=== PATIENT | male | born 1995 | race Hispanic/Latino ===

== ENCOUNTER 2019-03-03 17:44 | Emergency (ER) | payer OTHER ==
[2019-03-03 18:52] LABS: BASO % 0.6 % (0.0-2.0); EOS # 0.1 K/uL (0.0-0.7); EOS % 0.8 % (0.0-4.0); HEMOGLOBIN 15.2 g/dL (12.0-18.0); LYMPH # 1.9 K/uL (1.0-4.3); LYMPH % 26.2 % (20.0-40.0); MEAN CELL VOLUME 84.7 fl (80.0-94.0); MEAN CORPUSCULAR HEMOGLOBIN 28.2 pg (27.0-31.0); MEAN CORPUSCULAR HGB CONC 33.3 g/dL (33.0-37.0); MEAN PLATELET VOLUME 8.7 fl (7.2-11.7); MONO # 0.4 K/uL (0.0-0.8); MONO % 5.6 % (0.0-10.0); NEUT # 4.8 K/uL (1.8-7.0); NEUT % 66.8 % (50.0-75.0); NRBC % 0.3 % (0.0-0.0); RBC 5.4 Mil/uL (4.40-5.90); RED CELL DISTRIBUTION WIDTH 13.4 % (11.5-14.5); WHITE BLOOD COUNT 7.2 K/uL (4.8-10.8)
[2019-03-03 19:02] LABS: ACETAMINOPHEN < 10.0 ug/ml (10.0-30.0); SALICYLATE < 1.0 mg/dl
[2019-03-03 19:06] LABS: ALB/GLOB RATIO 1.4 (1.0-2.1); ALBUMIN 4.3 g/dL (3.5-5.0); ALT/SGPT 42 U/L (21-72); AST/SGOT 23 U/L (17-59); BLOOD UREA NITROGEN 13 mg/dl (9-20); CALCIUM 9.3 mg/dL (8.4-10.2); GFR NON-AFRICAN AMERICAN > 60
--- NOTE | 2019-03-03 19:36 | ED PDOC ---
HPI: Psych/Substance Abuse Time Seen by Provider: 03/03/19 18:09 Chief Complaint (Nursing): Psychiatric Evaluation Chief Complaint (Provider): Psychiatric Evaluation History Per: Patient History/Exam Limitations: no limitations Onset/Duration Of Symptoms: Days Suicide/Self Injury Attempted (Context): Ingestion (sleeping pills) Additional Complaint(s): 23 year old male with history of depression and scoliosis presents to ED for psychiatric evaluation. Patient admits to attempting suicide x1 week ago by ingesting an entire bottle of [id number] sleeping pills. He reports thoughts of wanting to and that things would be easier if he did. Patient denies any triggers. Patient was seen here x2 years for similar symptoms and was discharged home. He does not take any medicine or see a psychiatrist or therapist although he has been referred. Patient denies any recent attempts or plans, no homicidal ideation, no visual or auditory hallucinations, no physical complaints. Pt denies alcohol, admits to marijuana use that helps his depression PMD: none provided Past Medical History Reviewed: Historical Data, Nursing Documentation, Vital Signs Vital Signs: Last Vital Signs Temp 98.3 F 03/03/19 17:52 Pulse 68 03/03/19 17:52 Resp 20 03/03/19 17:52 BP 129/78 03/03/19 17:52 Pulse Ox 98 03/03/19 17:52 - Medical History PMH: Asthma, Depression Denies: Diabetes, Hepatitis, HIV, HTN, Seizures, Sexually Transmitted Disease - Surgical History Surgical History: No Surg Hx - Family History Family History: States: Unknown Family Hx - Social History Current smoker - smoking cessation education provided: Yes (heavy smoker) Alcohol: Social Drugs: Cannabis - Home Medications Home Medications: Ambulatory Orders Medication Instructions Recorded No Known Home Med 10/19/16 - Allergies Allergies/Adverse Reactions: Allergies Allergy/AdvReac Type Severity Reaction Status Date / Time No Known Allergies Allergy Verified 10/19/16 02:25 Review of Systems ROS Statement: Except As Marked, All Systems Reviewed And Found Negative Psych: Positive for: Depression. Negative for: Suicidal ideation, Other (no homicidal ideation, no visual or auditory hallucinations) Physical Exam - Reviewed Nursing Documentation Reviewed: Yes Vital Signs Reviewed: Yes - Physical Exam Comments: GENERAL APPEARANCE: Patient is awake, alert, oriented x 3, in no acute distress. SKIN: Warm, dry; (-) cyanosis HEAD: (-) scalp swelling, (-) scalp tenderness. EYES: (-) conjunctival pallor, (-) scleral icterus, (-) nystagmus. ENMT: Mucous membranes moist. Airway patent: (-) stridor. NECK: (-) tenderness, (-) stiffness, (-) lymphadenopathy. HEART AND CARDIOVASCULAR: (-) irregularity; (-) murmur, (-) gallop. CHEST AND RESPIRATORY: (-) rales, (-) rhonchi, (-) wheezes; breath sounds equal. ABDOMEN: Soft, (-) distention, (-) tenderness, (-) guarding. NEURO AND PSYCH: Mental status as above, flat affect. Affect: flat assembler type bar and segment: Intact. Pupils equal and reactive; EOMI; (-) facial asymmetry; tongue and uvula midline. Strength and DTRs symmetric. - Laboratory Results Result Diagrams: 03/03/19 18:42 03/03/19 18:42 Lab Results: Total Bilirubin 0.4 mg/dl (0.2-1.3) 03/03/19 18:42 AST 23 U/L (17-59) 03/03/19 18:42 ALT 42 U/L (21-72) 03/03/19 18:42 Alkaline Phosphatase 108 U/L (38-126) 03/03/19 18:42 Total Protein 7.5 G/DL (6.3-8.2) 03/03/19 18:42 Albumin 4.3 g/dL (3.5-5.0) 03/03/19 18:42 Globulin 3.1 gm/dL (2.2-3.9) 03/03/19 18:42 Albumin/Globulin Ratio 1.4 (1.0-2.1) 03/03/19 18:42 - ECG ECG: Positive for: Interpreted By Me ECG Rhythm: Positive for: Normal QRS, Sinus Rhythm (60). Negative for: ST/T Changes O2 Sat by Pulse Oximetry: 98 (RA) Pulse Ox Interpretation: Normal Medical Decision Making Medical Decision Making: Time: 1914 Initial Plan: --Crisis workup and evaluation --1 to 1 Pt seen by crisis, refusing to sing in, [facility] screening 23:45 pt needs CXR and EKG for screening CXR reviewed by me - no active disease 23:00 case endorsed to [facility], pending [facility] screening Scribe Attestation: Documented by Jaden Lyn acting as a scribe for Danny Bruce PA-C. Provider Scribe Attestation: All medical record entries made by the Scribe were at my direction and personally dictated by me. I have reviewed the chart and agree that the record accurately reflects my personal performance of the history, physical exam, medical decision making, and the department course for this patient. I have also personally directed, reviewed, and agree with the discharge instructions and disposition. Disposition - Clinical Impression Clinical Impression: Depressive disorder - Patient ED Disposition Is Patient to be Admitted: Transfer of Care (case endorsed to [facility], pending [facility] screening) Counseled Patient/Family Regarding: Studies Performed, Diagnosis - Disposition Disposition: Transfer of Care (case endorsed to [facility], pending [facility] screening) Disposition Time: 23:00 Condition: FAIR Instructions: Depression, Adult (DC) - POA Present On Arrival: None
[2019-03-03 20:21] LABS: URINE BILIRUBIN NEGATIVE (NEGATIVE); URINE BLOOD NEGATIVE (NEGATIVE); URINE CLARITY CLEAR (Clear); URINE COLOR STRAW (YELLOW); URINE GLUCOSE (UA) NEG (NEGATIVE); URINE LEUKOCYTE ESTERASE NEG Leu/uL (Negative); URINE PROTEIN NEGATIVE (NEGATIVE); URINE UROBILINOGEN 0.2-1.0 mg/dL (0.2-1.0)
[2019-03-03 20:37] LABS: BARBITURATES, UR NEGATIVE (NEGATIVE); BENZODIAZEPINES, UR NEGATIVE (NEGATIVE); OPIATES, UR NEGATIVE (NEGATIVE); PHENCYCLIDINE, UR NEGATIVE (NEGATIVE)
--- NOTE | 2019-03-04 06:23 | ED PDOC ---
- Laboratory Results Result Diagrams: 03/03/19 18:42 03/03/19 18:42 Lab Results: Total Bilirubin 0.4 mg/dl (0.2-1.3) 03/03/19 18:42 AST 23 U/L (17-59) 03/03/19 18:42 ALT 42 U/L (21-72) 03/03/19 18:42 Alkaline Phosphatase 108 U/L (38-126) 03/03/19 18:42 Total Protein 7.5 G/DL (6.3-8.2) 03/03/19 18:42 Albumin 4.3 g/dL (3.5-5.0) 03/03/19 18:42 Globulin 3.1 gm/dL (2.2-3.9) 03/03/19 18:42 Albumin/Globulin Ratio 1.4 (1.0-2.1) 03/03/19 18:42 Urine Color Straw (YELLOW) 03/03/19 20:02 Urine Clarity Clear (Clear) 03/03/19 20:02 Urine pH 6.0 (5.0-8.0) 03/03/19 20:02 Ur Specific [place] 1.012 (1.003-1.030) 03/03/19 20:02 Urine Protein Negative mg/dL (NEGATIVE) 03/03/19 20:02 Urine Glucose (UA) Neg mg/dL (NEGATIVE) 03/03/19 20:02 Urine Ketones Negative mg/dL (NEGATIVE) 03/03/19 20:02 Urine Blood Negative (NEGATIVE) 03/03/19 20:02 Urine Nitrate Negative (NEGATIVE) 03/03/19 20:02 Urine Bilirubin Negative (NEGATIVE) 03/03/19 20:02 Urine Urobilinogen 0.2-1.0 mg/dL (0.2-1.0) 03/03/19 20:02 Ur Leukocyte Esterase Neg Beatriz/uL (Negative) 03/03/19 20:02 - ECG O2 Sat by Pulse Oximetry: 99 <Fay Moon - Last Filed: 03/04/19 06:21> - Laboratory Results Result Diagrams: 03/03/19 18:42 03/03/19 18:42 Lab Results: Total Bilirubin 0.4 mg/dl (0.2-1.3) 03/03/19 18:42 AST 23 U/L (17-59) 03/03/19 18:42 ALT 42 U/L (21-72) 03/03/19 18:42 Alkaline Phosphatase 108 U/L (38-126) 03/03/19 18:42 Total Protein 7.5 G/DL (6.3-8.2) 03/03/19 18:42 Albumin 4.3 g/dL (3.5-5.0) 03/03/19 18:42 Globulin 3.1 gm/dL (2.2-3.9) 03/03/19 18:42 Albumin/Globulin Ratio 1.4 (1.0-2.1) 03/03/19 18:42 Urine Color Straw (YELLOW) 03/03/19 20:02 Urine Clarity Clear (Clear) 03/03/19 20:02 Urine pH 6.0 (5.0-8.0) 03/03/19 20:02 Ur Specific [place] 1.012 (1.003-1.030) 03/03/19 20:02 Urine Protein Negative mg/dL (NEGATIVE) 03/03/19 20:02 Urine Glucose (UA) Neg mg/dL (NEGATIVE) 03/03/19 20:02 Urine Ketones Negative mg/dL (NEGATIVE) 03/03/19 20:02 Urine Blood Negative (NEGATIVE) 03/03/19 20:02 Urine Nitrate Negative (NEGATIVE) 03/03/19 20:02 Urine Bilirubin Negative (NEGATIVE) 03/03/19 20:02 Urine Urobilinogen 0.2-1.0 mg/dL (0.2-1.0) 03/03/19 20:02 Ur Leukocyte Esterase Neg Beatriz/uL (Negative) 03/03/19 20:02 <Liu Riley - Last Filed: 03/04/19 07:01> Medical Decision Making Medical Decision Makin:45 [facility] screener evaluated patient, patient is accepted bed assignment to be given the am. 06:[address] riley. patient pending bed assignment in [facility]. patient maintained on 1:1. <Fay Moon - Last Filed: 03/04/19 06:21> Medical Decision Makin No events overnight, patient stable Will endorse to Dr. Mccullough pending bed availability at [facility]. <Liu Riley - Last Filed: 03/04/19 07:01> Disposition - POA Present On Arrival: None - Disposition Disposition: Other Institution Disposition Time: 06:22 <Fay Moon - Last Filed: 03/04/19 06:21> - POA Present On Arrival: None - Disposition Disposition: Transfer of Care Disposition Time: 07:00 Patient Signed Over To: Chepe Mccullough Handoff Comments: pending bed availability at [facility] <Liu Riley - Last Filed: 03/04/19 07:01> - Clinical Impression Clinical Impression: Depressive disorder - Disposition Condition: FAIR Instructions: Depression, Adult (DC) Progress Note - Review of Symptoms General: No: Chills, Night Sweats, Fatigue, Malaise, Appetite, Other HEENT: No: Head Aches, Visual Changes, Eye Pain, Ear Pain, Dysphasia, Sinus Congestion, Post Nasal Drip, Sore Throat, Other Pulmonary: No: Dyspnea, Cough, Pleuritic Chest Pain, Other Cardiovascular: No: Chest Pain, Palpitations, Orthopnea, Paroxysmal Noc. Dyspnea, Edema, Light Headedness, Other Gastrointestinal: No: Nausea, Vomiting, Abdominal Pain, Diarrhea, Constipation, Melena, Hematochezia, Other Genitourinary: No: Dysuria, Frequency, Incontinence, Hematuria, Retention, Other Musculoskeletal: No: Muscle Pain, Joint Pain, Other Neurological: No: Weakness, Numbness, Incoordination, Change in speech, Confusion, Seizures, Other <Fay Moon - Last Filed: 03/04/19 06:21>
--- NOTE | 2019-03-04 07:28 | ED PDOC ---
- Laboratory Results Result Diagrams: 03/03/19 18:42 03/03/19 18:42 Lab Results: Total Bilirubin 0.4 mg/dl (0.2-1.3) 03/03/19 18:42 AST 23 U/L (17-59) 03/03/19 18:42 ALT 42 U/L (21-72) 03/03/19 18:42 Alkaline Phosphatase 108 U/L (38-126) 03/03/19 18:42 Total Protein 7.5 G/DL (6.3-8.2) 03/03/19 18:42 Albumin 4.3 g/dL (3.5-5.0) 03/03/19 18:42 Globulin 3.1 gm/dL (2.2-3.9) 03/03/19 18:42 Albumin/Globulin Ratio 1.4 (1.0-2.1) 03/03/19 18:42 Urine Color Straw (YELLOW) 03/03/19 20:02 Urine Clarity Clear (Clear) 03/03/19 20:02 Urine pH 6.0 (5.0-8.0) 03/03/19 20:02 Ur Specific [place] 1.012 (1.003-1.030) 03/03/19 20:02 Urine Protein Negative mg/dL (NEGATIVE) 03/03/19 20:02 Urine Glucose (UA) Neg mg/dL (NEGATIVE) 03/03/19 20:02 Urine Ketones Negative mg/dL (NEGATIVE) 03/03/19 20:02 Urine Blood Negative (NEGATIVE) 03/03/19 20:02 Urine Nitrate Negative (NEGATIVE) 03/03/19 20:02 Urine Bilirubin Negative (NEGATIVE) 03/03/19 20:02 Urine Urobilinogen 0.2-1.0 mg/dL (0.2-1.0) 03/03/19 20:02 Ur Leukocyte Esterase Neg Beatriz/uL (Negative) 03/03/19 20:02 - ECG O2 Sat by Pulse Oximetry: 99 Medical Decision Making Medical Decision Makin: Patient endorsed to this provider by Dr. Felton. Patient is here for Psychiatric matter. Patient has been accepted by [facility] and pending accepting bed. 1458: Stable. Dr. Hanks to take over care. Fu on [facility] bed. Disposition - Clinical Impression Clinical Impression: Depressive disorder - POA Present On Arrival: None - Disposition Disposition: Transfer of Care Disposition Time: 14:58 Condition: FAIR
--- NOTE | 2019-03-04 08:43 | RAD ---
Date of service: 03/03/2019 HISTORY: crisis COMPARISON: Chest radiographs 10/19/2016. TECHNIQUE: Chest PA and lateral views FINDINGS: LUNGS: No active pulmonary disease. PLEURA: No significant pleural effusion identified. No pneumothorax apparent. CARDIOVASCULAR: No aortic atherosclerotic calcification present. Normal cardiac size. No pulmonary vascular congestion. OSSEOUS STRUCTURES: No significant abnormalities. VISUALIZED UPPER ABDOMEN: Normal. OTHER FINDINGS: None. IMPRESSION: No interval acute cardiopulmonary disease appreciated.
--- NOTE | 2019-03-04 10:57 | CP.PCM.CON ---
History of Present Illness - History of Present Illness History of Present Illness: Psychiatry consult note CC: Depression HPI: 23 yo male w/ h/o depression, not currently in psychiatric treatment, presents s/p intentional overdose on sleeping pills >1 week ago. Patient continues to report feeling depressed, but denies acute suicidal ideation/plan/intent. He is not agreeable to psychiatric admission or treatment at this time. He was [place] by [facility], pending bed and transfer. Impression: 23 yo male w/ depression, needs acute psychiatric admission for treatment and stabilization. -Transfer to [facility] [place] when bed is available Past Patient History - Past Social History Alcohol: Social Drugs: Cannabis - CARDIAC Hx Hypertension: No - PULMONARY Hx Asthma: Yes - NEUROLOGICAL Hx Seizures: No - HEMATOLOGICAL/ONCOLOGICAL Hx Human Immunodeficiency Virus (HIV): No - GENITOURINARY/GYNECOLOGICAL Hx Sexually Transmitted Disorders: No - PSYCHIATRIC Hx Depression: Yes - SURGICAL HISTORY Hx Surgeries: Yes Hx Orthopedic Surgery: Yes (left knee) Meds Allergies/Adverse Reactions: Allergies Allergy/AdvReac Type Severity Reaction Status Date / Time No Known Allergies Allergy Verified 10/19/16 02:25 Results - Vital Signs Recent Vital Signs: Last Vital Signs Temp 97.8 F 03/04/19 07:42 Pulse 56 L 03/04/19 07:42 Resp 16 03/04/19 07:42 BP 106/56 L 03/04/19 07:42 Pulse Ox 98 03/04/19 07:42 - Labs Result Diagrams: 03/03/19 18:42 03/03/19 18:42 Labs: Laboratory Results - last 24 hr 03/03/19 03/03/19 03/03/19 18:40 18:42 18:42 WBC RBC Hgb Hct MCV MCH MCHC RDW Plt Count MPV Neut % (Auto) Lymph % (Auto) [place] % (Auto) Eos % (Auto) Baso % (Auto) Neut # (Auto) Lymph # (Auto) [place] # (Auto) Eos # (Auto) Baso # (Auto) Sodium 143 Potassium 3.9 Chloride 107 Carbon Dioxide 24 Anion Gap 16 BUN 13 Creatinine 0.8 Est GFR ( Amer) > 60 Est GFR (Non-Af Amer) > 60 POC Glucose (mg/dL) 105 Random Glucose 92 Calcium 9.3 Total Bilirubin 0.4 AST 23 ALT 42 Alkaline Phosphatase 108 Total Protein 7.5 Albumin 4.3 Globulin 3.1 Albumin/Globulin Ratio 1.4 Urine Color Urine Clarity Urine pH Ur Specific [place] Urine Protein Urine Glucose (UA) Urine Ketones Urine Blood Urine Nitrate Urine Bilirubin Urine Urobilinogen Ur Leukocyte Esterase Salicylates < 1.0 Urine Opiates Screen Urine Methadone Screen Acetaminophen < 10.0 L Ur Barbiturates Screen Ur Phencyclidine Scrn Ur Amphetamines Screen U Benzodiazepines Scrn U Oth Cocaine Metabols U Cannabinoids Screen Alcohol, Quantitative < 10 03/03/19 03/03/19 03/03/19 18:42 20:02 20:02 WBC 7.2 RBC 5.40 Hgb 15.2 Hct 45.7 MCV 84.7 MCH 28.2 MCHC 33.3 RDW 13.4 Plt Count 251 MPV 8.7 Neut % (Auto) 66.8 Lymph % (Auto) 26.2 [place] % (Auto) 5.6 Eos % (Auto) 0.8 Baso % (Auto) 0.6 Neut # (Auto) 4.8 Lymph # (Auto) 1.9 [place] # (Auto) 0.4 Eos # (Auto) 0.1 Baso # (Auto) 0.0 Sodium Potassium Chloride Carbon Dioxide Anion Gap BUN Creatinine Est GFR ( Amer) Est GFR (Non-Af Amer) POC Glucose (mg/dL) Random Glucose Calcium Total Bilirubin AST ALT Alkaline Phosphatase Total Protein Albumin Globulin Albumin/Globulin Ratio Urine Color Straw Urine Clarity Clear Urine pH 6.0 Ur Specific [place] 1.012 Urine Protein Negative Urine Glucose (UA) Neg Urine Ketones Negative Urine Blood Negative Urine Nitrate Negative Urine Bilirubin Negative Urine Urobilinogen 0.2-1.0 Ur Leukocyte Esterase Neg Salicylates Urine Opiates Screen Negative Urine Methadone Screen Negative Acetaminophen Ur Barbiturates Screen Negative Ur Phencyclidine Scrn Negative Ur Amphetamines Screen Negative U Benzodiazepines Scrn Negative U Oth Cocaine Metabols Negative U Cannabinoids Screen Positive H Alcohol, Quantitative
--- NOTE | 2019-03-04 13:33 | CARD ---
APPROVED REPORT Date of service: 03/03/2019 EKG Measurement Heart [id number] [id number] <Conclusion> Normal sinus rhythm with sinus arrhythmia Normal ECG
--- NOTE | 2019-03-04 16:08 | ED PDOC ---
- Laboratory Results Result Diagrams: 03/03/19 18:42 03/03/19 18:42 Lab Results: Total Bilirubin 0.4 mg/dl (0.2-1.3) 03/03/19 18:42 AST 23 U/L (17-59) 03/03/19 18:42 ALT 42 U/L (21-72) 03/03/19 18:42 Alkaline Phosphatase 108 U/L (38-126) 03/03/19 18:42 Total Protein 7.5 G/DL (6.3-8.2) 03/03/19 18:42 Albumin 4.3 g/dL (3.5-5.0) 03/03/19 18:42 Globulin 3.1 gm/dL (2.2-3.9) 03/03/19 18:42 Albumin/Globulin Ratio 1.4 (1.0-2.1) 03/03/19 18:42 Urine Color Straw (YELLOW) 03/03/19 20:02 Urine Clarity Clear (Clear) 03/03/19 20:02 Urine pH 6.0 (5.0-8.0) 03/03/19 20:02 Ur Specific [place] 1.012 (1.003-1.030) 03/03/19 20:02 Urine Protein Negative mg/dL (NEGATIVE) 03/03/19 20:02 Urine Glucose (UA) Neg mg/dL (NEGATIVE) 03/03/19 20:02 Urine Ketones Negative mg/dL (NEGATIVE) 03/03/19 20:02 Urine Blood Negative (NEGATIVE) 03/03/19 20:02 Urine Nitrate Negative (NEGATIVE) 03/03/19 20:02 Urine Bilirubin Negative (NEGATIVE) 03/03/19 20:02 Urine Urobilinogen 0.2-1.0 mg/dL (0.2-1.0) 03/03/19 20:02 Ur Leukocyte Esterase Neg Beatriz/uL (Negative) 03/03/19 20:02 - ECG O2 Sat by Pulse Oximetry: 99 Medical Decision Making Medical Decision Makin:25 Pt stable during ED stay, ate meal and administered Nicotine patch. Disposition - Clinical Impression Clinical Impression: Depressive disorder - POA Present On Arrival: None - Disposition Disposition: Transfer of Care Disposition Time: 00:00 Condition: STABLE Forms: [employer] ([place]) Patient Signed Over To: Liu Felton Handoff Comments: Pending [facility] bed availability. Addendum Addendum: 03/04/19 15:[address] Pt signed out [address] Dr[address] Mccullough pending bed availability @ [facility].
[2019-03-05 03:16] VITALS: RESP 16
--- NOTE | 2019-03-05 07:01 | ED PDOC ---
- Laboratory Results Result Diagrams: 03/03/19 18:42 03/03/19 18:42 Lab Results: Total Bilirubin 0.4 mg/dl (0.2-1.3) 03/03/19 18:42 AST 23 U/L (17-59) 03/03/19 18:42 ALT 42 U/L (21-72) 03/03/19 18:42 Alkaline Phosphatase 108 U/L (38-126) 03/03/19 18:42 Total Protein 7.5 G/DL (6.3-8.2) 03/03/19 18:42 Albumin 4.3 g/dL (3.5-5.0) 03/03/19 18:42 Globulin 3.1 gm/dL (2.2-3.9) 03/03/19 18: Albumin/Globulin Ratio 1.4 (1.0-2.1) 03/03/19 18:42 Urine Color Straw (YELLOW) 03/03/19 20:02 Urine Clarity Clear (Clear) 03/03/19 20:02 Urine pH 6.0 (5.0-8.0) 03/03/19 20:02 Ur Specific [place] 1.012 (1.003-1.030) 03/03/19 20:02 Urine Protein Negative mg/dL (NEGATIVE) 03/03/19 20:02 Urine Glucose (UA) Neg mg/dL (NEGATIVE) 03/03/19 20:02 Urine Ketones Negative mg/dL (NEGATIVE) 03/03/19 20:02 Urine Blood Negative (NEGATIVE) 03/03/19 20:02 Urine Nitrate Negative (NEGATIVE) 03/03/19 20:02 Urine Bilirubin Negative (NEGATIVE) 03/03/19 20:02 Urine Urobilinogen 0.2-1.0 mg/dL (0.2-1.0) 03/03/19 20:02 Ur Leukocyte Esterase Neg Beatriz/uL (Negative) 03/03/19 20:02 - ECG O2 Sat by Pulse Oximetry: 97 (RA) Pulse Ox Interpretation: Normal Medical Decision Making Medical Decision Making: Time: 0000 -- Patient endorsed to me by Dr. Hanks, pending [facility] bed availability. Time: 0230 -- On re-evaluation, patient reports of feeling anxious. Patient requesting medications at this time to help relax. Ativan ordered. Time: 0400 -- On re-evaluation, patient is resting comfortably, in no acute distress. Time: 0600 -- On re-evaluation, patient is resting comfortably, in no acute distress. No acute changes noted. Time: 0700 -- Patient endorsed to Dr. Mccullough, pending bed availability. Scribe Attestation: Documented by John Corbin, acting as a scribe Paolo Felton MD. Provider Scribe Attestation: All medical record entries made by the Scribe were at my direction and personally dictated by me. I have reviewed the chart and agree that the record accurately reflects my personal performance of the history, physical exam, medical decision making, and the department course for this patient. I have also personally directed, reviewed, and agree with the discharge instructions and disposition. Disposition - Clinical Impression Clinical Impression: Depressive disorder - POA Present On Arrival: None - Disposition Disposition: Transfer of Care Disposition Time: 07:00 Condition: STABLE Patient Signed Over To: Chepe Mccullough Handoff Comments: pending bed availability at [facility]
[2019-03-05 11:36] VITALS: BP 142/62; PULSE 69; TEMP 98
--- NOTE | 2019-03-05 11:41 | CP.PCM.CON ---
History of Present Illness - History of Present Illness History of Present Illness: Psychiatry consult follow-up note CC: Depression HPI: 23 yo male w/ h/o depression, not currently in psychiatric treatment, presents s/p intentional overdose on sleeping pills >1 week ago. Patient continues to report feeling depressed, but denies acute suicidal ideation/plan/intent. He is not agreeable to psychiatric admission or treatment at this time. He was screened by [facility], accepted for involuntary psychiatric admission, pending bed and transfer. Impression: 23 yo male w/ depression, needs acute psychiatric admission for treatment and stabilization. -Transfer to [facility] for involuntary admission -PC completed by inspector automatic typewriter Past Patient History - Past Social History Alcohol: Social Drugs: Cannabis - CARDIAC Hx Hypertension: No - PULMONARY Hx Asthma: Yes - NEUROLOGICAL Hx Seizures: No - HEMATOLOGICAL/ONCOLOGICAL Hx Human Immunodeficiency Virus (HIV): No - GENITOURINARY/GYNECOLOGICAL Hx Sexually Transmitted Disorders: No - PSYCHIATRIC Hx Depression: Yes - SURGICAL HISTORY Hx Surgeries: Yes Hx Orthopedic Surgery: Yes (left knee) Meds Allergies/Adverse Reactions: Allergies Allergy/AdvReac Type Severity Reaction Status Date / Time No Known Allergies Allergy Verified 10/19/16 02:25 Results - Vital Signs Recent Vital Signs: Last Vital Signs Temp 98 F 03/05/19 11:35 Pulse 69 03/05/19 11:35 Resp 16 03/05/19 11:35 BP 142/62 03/05/19 11:35 Pulse Ox 98 03/05/19 11:35 - Labs Result Diagrams: 03/03/19 18:42 03/03/19 18:42
--- NOTE | 2019-03-05 13:49 | ED PDOC ---
- Laboratory Results Result Diagrams: 03/03/19 18:42 03/03/19 18:42 Lab Results: Total Bilirubin 0.4 mg/dl (0.2-1.3) 03/03/19 18:42 AST 23 U/L (17-59) 03/03/19 18:42 ALT 42 U/L (21-72) 03/03/19 18:42 Alkaline Phosphatase 108 U/L (38-126) 03/03/19 18:42 Total Protein 7.5 G/DL (6.3-8.2) 03/03/19 18:42 Albumin 4.3 g/dL (3.5-5.0) 03/03/19 18:42 Globulin 3.1 gm/dL (2.2-3.9) 03/03/19 18:42 Albumin/Globulin Ratio 1.4 (1.0-2.1) 03/03/19 18:42 Urine Color Straw (YELLOW) 03/03/19 20:02 Urine Clarity Clear (Clear) 03/03/19 20:02 Urine pH 6.0 (5.0-8.0) 03/03/19 20:02 Ur Specific [place] 1.012 (1.003-1.030) 03/03/19 20:02 Urine Protein Negative mg/dL (NEGATIVE) 03/03/19 20:02 Urine Glucose (UA) Neg mg/dL (NEGATIVE) 03/03/19 20:02 Urine Ketones Negative mg/dL (NEGATIVE) 03/03/19 20:02 Urine Blood Negative (NEGATIVE) 03/03/19 20:02 Urine Nitrate Negative (NEGATIVE) 03/03/19 20:02 Urine Bilirubin Negative (NEGATIVE) 03/03/19 20:02 Urine Urobilinogen 0.2-1.0 mg/dL (0.2-1.0) 03/03/19 20:02 Ur Leukocyte Esterase Neg Beatriz/uL (Negative) 03/03/19 20:02 - ECG O2 Sat by Pulse Oximetry: 98 - Progress ED Course And Treament: 700: Stable. Alert. Took over care. [place] [facility] [place]. 1200: Stable. AAOx3. 1300: Bed available. Will transfer. Disposition - Clinical Impression Clinical Impression: Depressive disorder - POA Present On Arrival: None - Disposition Disposition: Other Institution Disposition Time: 13:49 Condition: STABLE
[2019-03-05 19:29] VITALS: O2SAT 97
== END 2019-03-05 15:01 | disposition short-term general hospital (02) ==
LOC: H.ER 17:44
DX: F32.9 Major depressive disorder, single episode, unspecified (principal); F17.200 Nicotine dependence, unspecified, uncomplicated